=== PATIENT | female | born 1960 | race African-American/Black ===

== ENCOUNTER 2022-04-17 15:01 | Observation (INO) ==
[2022-04-17 15:46] LABS: Basophils % 0.5 %; Eosinophils # 0.1 K/mcL (0.0-0.6); Eosinophils % 0.8 %; Hematocrit 37.4 % (35.3-44.9); Hemoglobin 11.7 g/dL (11.5-15.4); Immature Granulocytes % 0.3 % (0-4); Lymphocytes # 1.8 K/mcL (0.6-4.6); Lymphocytes % 27.8 %; Mean Corpuscular HGB Conc 31.3 g/dL (31.6-35.5); Mean Corpuscular Volume 86.4 fL (83.0-100.0); Mean Platelet Volume 9.1 fL (9.4-12.4); Monocytes # 0.6 K/mcL (0.0-1.3); Monocytes % 8.6 %; Neutrophils # 4.1 K/mcL (1.6-8.9); Platelet Count 487 K/mcL (140-400); Red Blood Count 4.33 M/mcL (3.82-4.97); Red Cell Distribution Width 13.3 % (11.5-14.5); White Blood Count 6.5 K/mcL (4.3-11.1)
[2022-04-17 16:06] LABS: Calcium 10.1 mg/dL (8.6-10.3); Potassium 2.9 mEq/L (3.5-5.1); Troponin I 0.03 ng/mL (< 0.04)
[2022-04-17] MEDS ORDERED: 0.9 % Sodium Chloride 1,000 ML IV ONE (16:11)
[2022-04-17] MEDS ORDERED: Naloxone 0.4 MG/ML INJ IVP PRN (18:32)
[2022-04-17] MEDS ORDERED: Perflutren Lipid Microsphere 1.3 ML in 0.9 % Sodium Chloride 8.7 ML IVP PRN (18:36)
[2022-04-17] MEDS ORDERED: *HR* Labetalol 20 MG/4 ML SYRINGE IVP PRN (18:36)
[2022-04-17] MEDS: Ringers Solution, Lactated 1,000 ML IVC SCH (20:51)
[2022-04-18] MEDS ORDERED: *HR* HYDROcodone/Acet 5/325 mg TABLET PO ONE (00:09)
[2022-04-18] MEDS ORDERED: Acetaminophen 325 MG TABLET PO ONE (00:40)
[2022-04-18 03:22] LABS: Hematocrit 37.6 % (35.3-44.9); Hemoglobin 11.6 g/dL (11.5-15.4); Mean Corpuscular HGB Conc 30.9 g/dL (31.6-35.5); Mean Corpuscular Hemoglobin 27.6 pg (28.0-33.3); Mean Corpuscular Volume 89.5 fL (83.0-100.0); Mean Platelet Volume 9.8 fL (9.4-12.4); Platelet Count 339 K/mcL (140-400); Red Cell Distribution Width 13.6 % (11.5-14.5); White Blood Count 7.7 K/mcL (4.3-11.1)
[2022-04-18] MEDS: Ringers Solution, Lactated 1,000 ML IVC SCH (03:42)
[2022-04-18 04:06] LABS: Albumin 3.7 g/dL (3.5-5.7); Albumin/Globulin Ratio 1.3 (1.1-2.2); Bilirubin,Total 0.5 mg/dL (0.3-1.0); Calcium 9.5 mg/dL (8.6-10.3); Chol/HDL Ratio 3.2 (0-4.9); Globulin 2.9 g/dL (2.4-3.5); Magnesium 2.3 mg/dL (1.6-2.6); Phosphorous 3.9 mg/dL (2.7-4.5); Potassium 3.1 mEq/L (3.5-5.1); Total Protein 6.6 g/dL (6.4-8.9)
[2022-04-18] MEDS: 0.9 % Sodium Chloride 1,000 ML IVC SCH ×2 (09:14→22:04)
[2022-04-18] MEDS: Ondansetron ODT 4 MG TAB.RAPDIS SL PRN ×2 (09:20→16:47)
[2022-04-18] MEDS: Acetaminophen 325 MG TABLET PO PRN ×2 (12:25→19:53)
[2022-04-18] MEDS: *HR* Heparin 5,000 UNIT/ML VIAL SQ SCH ×2 (14:08→19:53)
[2022-04-18 19:13] LABS: Bacteria,Urine Few per hpf (None-Few); Bilirubin,Urine Negative (Negative); Blood,Urine Negative (Negative); Clarity,Urine Clear (Clear); Color,Urine Yellow (Yellow); Glucose,Urine (UA) Normal (Normal); Ketones,Urine Negative (Negative); Leukocyte Esterase,Urine Small (Negative); Mucus,Urine Few per lpf (None-Few); Nitrite,Urine Negative (Negative); Protein,Urine 30 mg/dL (Neg-Trace); RBC,Urine 0-3 per hpf (0-3); Specific Gravity,Urine 1.023 (1.010-1.025); Squamous Epithelial Cell,Urine Moderate per hpf (None-Few); Urobilinogen,Urine Normal (Normal)
[2022-04-18 19:22] LABS: Sodium, Urine 24.6 mEq/L
[2022-04-19] MEDS ORDERED: Ondansetron 4 MG/2 ML VIAL IVP PRN (02:28)
[2022-04-19 05:39] VITALS: TEMP 97.7
[2022-04-19] MEDS: *HR* Heparin 5,000 UNIT/ML VIAL SQ SCH ×2 (06:04→13:34)
[2022-04-19 06:28] LABS: Basophils % 0.3 %; Eosinophils # 0.1 K/mcL (0.0-0.6); Hematocrit 36.8 % (35.3-44.9); Hemoglobin 11.2 g/dL (11.5-15.4); Immature Granulocytes % 0.3 % (0-4); Lymphocytes # 1.6 K/mcL (0.6-4.6); Mean Corpuscular HGB Conc 30.4 g/dL (31.6-35.5); Mean Corpuscular Hemoglobin 27.3 pg (28.0-33.3); Mean Corpuscular Volume 89.5 fL (83.0-100.0); Mean Platelet Volume 8.9 fL (9.4-12.4); Monocytes # 0.7 K/mcL (0.0-1.3); Monocytes % 10.7 %; Neutrophils # 4.3 K/mcL (1.6-8.9); Platelet Count 431 K/mcL (140-400); Red Blood Count 4.11 M/mcL (3.82-4.97); Red Cell Distribution Width 13.6 % (11.5-14.5); Segmented Neutrophils % 63.7 %; White Blood Count 6.7 K/mcL (4.3-11.1)
[2022-04-19] MEDS: 0.9 % Sodium Chloride 1,000 ML IVC SCH (08:05)
[2022-04-19 10:34] LABS: Calcium 9.5 mg/dL (8.6-10.3); Potassium 3.4 mEq/L (3.5-5.1); Thyroid Stimulating Hormone 4.645 mcIU/mL (0.340-5.600)
[2022-04-19 12:35] VITALS: BP 146/85; PULSE 71
[2022-04-19 17:18] VITALS: O2SAT 96
== END 2022-04-19 18:00 | disposition home or self-care (01) ==
LOC: 2ANU 15:01 → EMEROOARM 15:01 → SUATTDRO 17:43 → 2ANU 18:30
PROVIDERS: ADMIT Family Medicine; ATTEND Family Medicine